=== PATIENT | male | born 1975 | race Two or more races ===

== ENCOUNTER 2018-11-19 10:03 | Emergency (ER) | payer OTHER ==
[~2018-11-19] VITALS: Ht 190.5 cm; Wt 130.3 kg
[2018-11-19] MEDS ORDERED: LISI-167 PO (10:28)
[2018-11-19] MEDS ORDERED: MULT-658 PO (10:28)
--- NOTE | 2018-11-19 10:29 | NUR ---
pt to ed for intermittent left arm pain x1 week, worse last night. pt reports worse when resting and unable to sleep. pt reports fall on ice 1 week ago onto right leg. no left arm pain noted at that time. connected to monitors. vss. pa at bedside for assessment. awaiting orders at this time. no needs currently. call light within reach.
[2018-11-19] MEDS ORDERED: CYCLOBENZAPRINE 10 MG TABLET PO ONE (10:30)
[2018-11-19] MEDS ORDERED: CYCLOBENZAPRINE 10 MG TABLET ONE (10:33)
--- NOTE | 2018-11-19 10:45 | NUR ---
lab at bedside.
[2018-11-19 10:59] LABS: BASOPHILS # (AUTO) 0.02 x10^3/uL (0-0.1); BASOPHILS % (AUTO) 0 % (0-1); EOSINOPHILS # (AUTO) 0.05 x10^3/uL (0-0.4); EOSINOPHILS % (AUTO) 1 % (1-7); LYMPHOCYTES # (AUTO) 1.62 x10^3/uL (1-3.4); LYMPHOCYTES % (AUTO) 33 % (22-44); MD NO; MEAN CORPUSCULAR HEMOGLOBIN 29.7 pg (27.5-34.5); MEAN CORPUSCULAR HGB CONC 33.5 g/dL (33.2-36.2); MEAN CORPUSCULAR VOLUME 88.7 fL (81-97); MEAN PLATELET VOLUME 9.2 fL (7.4-10.4); MONOCYTES # (AUTO) 0.35 x10^3/uL (0.2-0.8); MONOCYTES % (AUTO) 7 % (2-9); NEUTROPHILS # (AUTO) 2.89 x10^3/uL (1.8-6.8); NEUTROPHILS % (AUTO) 59 % (42-75); PLATELET COUNT 146 x10^3/uL (130-400)
--- NOTE | 2018-11-19 11:06 | NUR ---
pt resting in room. no needs at this time. vss. awaiting lab results.
[2018-11-19 11:08] LABS: ALBUMIN 3.6 g/dL (3.4-5.0); ANION GAP 4 mmol/L (5-15); CALCIUM 8.3 mg/dL (8.5-10.1); CHLORIDE 110 mmol/L (98-107); CREATININE 0.98 mg/dL (0.7-1.3)
[2018-11-19 11:12] LABS: TROPONIN I < 0.015 ng/mL (0.000-0.045)
--- NOTE | 2018-11-19 11:23 | NUR ---
all results back at this time. chart up for recheck.
[2018-11-19 11:56] VITALS: BP 123/75
--- NOTE | 2018-11-19 11:57 | NUR ---
pt resting in room with lights dimmed. no needs at this time. vss. call light within reach. chart up for recheck.
== END 2018-11-19 12:43 | disposition home or self-care (01) ==
LOC: ED 11:51
DX: R07.89 Other chest pain (principal); I10 Essential (primary) hypertension; E66.9 Obesity, unspecified
CPT/HCPCS: 36415; 71046; 80048; 82040; 84484; 85025; 93005; 99284

== ENCOUNTER 2018-12-26 02:35 | Emergency (ER) | payer OTHER ==
[~2018-12-26] VITALS: Ht 190.5 cm; Wt 127.0 kg
[~2018-12-26 02:35] MED LIST: LISI-167 PO; MULT-658 PO
[2018-12-26] MEDS ORDERED: MORPHINE SULFATE 4 MG/ML, 1ML ONE ×2 (02:54→04:04)
[2018-12-26] MEDS ORDERED: ONDANSETRON 2MG/ML, 2ML ONE (02:54)
[2018-12-26] MEDS ORDERED: MORPHINE SULFATE 4 MG/ML, 1ML IVPush PRN (03:00)
[2018-12-26] MEDS ORDERED: ONDANSETRON 2MG/ML, 2ML IVPush ONE (03:00)
[2018-12-26 03:07] LABS: BASOPHILS # (AUTO) 0.03 x10^3/uL (0-0.1); BASOPHILS % (AUTO) 1 % (0-1); EOSINOPHILS # (AUTO) 0.09 x10^3/uL (0-0.4); EOSINOPHILS % (AUTO) 2 % (1-7); LYMPHOCYTES # (AUTO) 2.92 x10^3/uL (1-3.4); LYMPHOCYTES % (AUTO) 46 % (22-44); MD NO; MEAN CORPUSCULAR HEMOGLOBIN 29.4 pg (27.5-34.5); MEAN CORPUSCULAR HGB CONC 33.4 g/dL (33.2-36.2); MEAN CORPUSCULAR VOLUME 88.2 fL (81-97); MEAN PLATELET VOLUME 9.4 fL (7.4-10.4); MONOCYTES # (AUTO) 0.62 x10^3/uL (0.2-0.8); MONOCYTES % (AUTO) 10 % (2-9); NEUTROPHILS # (AUTO) 2.67 x10^3/uL (1.8-6.8); NEUTROPHILS % (AUTO) 42 % (42-75); PLATELET COUNT 142 x10^3/uL (130-400); RED CELL DISTRIBUTION WIDTH 13.4 % (9.4-14.8)
--- NOTE | 2018-12-26 03:07 | NUR ---
PT PRESENTS W/ SUDDEN R FLANK AND RUQ ABD [id number] MINUTES AGO. STATES PAIN IS STABBING/SHARP AND WOKE HIM FROM HIS SLEEP. STATES HX OF KIDNEY STONES. DENIES FURTHER GI/ SX. MONITORING APPLIED. CALL LIGHT WITHIN REACH. PT TO CT.
[2018-12-26 03:16] LABS: ALANINE AMINOTRANSFERASE 57 U/L (12-78); ALBUMIN 4.1 g/dL (3.4-5.0); ANION GAP 8 mmol/L (5-15); CALCIUM 8.8 mg/dL (8.5-10.1); CHLORIDE 107 mmol/L (98-107); CREATININE 1.13 mg/dL (0.7-1.3)
[2018-12-26 03:18] LABS: ALKALINE PHOSPHATASE 70 U/L (45-117); BILIRUBIN,TOTAL 0.5 mg/dL (0.2-1.0); TOTAL PROTEIN 7.1 g/dL (6.4-8.2)
--- NOTE | 2018-12-26 03:56 | NUR ---
PT PROMPTED FOR UA AGAIN, AT THIS TIME. ATTEMPTING UA.
[2018-12-26 04:29] LABS: MICROSCOPIC NOT IND
[2018-12-26 04:36] LABS: CULTURE INDICATED? NO
--- NOTE | 2018-12-26 04:51 | NUR ---
ALL RESULTS BACK. PT UP FOR RECHECK.
--- NOTE | 2018-12-26 05:01 | NUR ---
AT BEDSIDE FOR REASSESSMENT.
[2018-12-26 05:47] VITALS: BP 109/75
--- NOTE | 2018-12-26 05:48 | NUR ---
PT STATES PAIN IS BACK, BUT NOT BAD BEFORE. THIS RN TO CONTINUE TO MONITOR FOR PAIN PER MD ORDER.
--- NOTE | 2018-12-26 05:56 | NUR ---
AT BEDSIDE FOR RECHECK.
== END 2018-12-26 06:19 | disposition home or self-care (01) ==
LOC: ED 05:22
DX: K80.20 Calculus of gallbladder without cholecystitis without obstruction (principal); I10 Essential (primary) hypertension
CPT/HCPCS: 36415; 74176; 80053; 81003; 83690; 85025; 96374; 96375; 99284; J2405

== ENCOUNTER 2019-04-04 10:11 | Observation (INO) | payer BC, OTHER ==
[~2019-04-04] VITALS: Ht 190.5 cm; Wt 130.1 kg
--- NOTE | 2019-04-04 10:32 | NUR ---
ESCORETED PATIENT TO ROOM 26 VIA WHEELCHAIR. PT CHANGED INTO GOWN. WARM BLANKET PROVIDED. CONINUOUS SPO2 AND CARDIAC MONITORS APPLIED. BP CUFF ON AND SET TO Q1HR. CHRISTINA FUENTES AT BEDSIDE. S/O AT BEDSIDE. PT C/O CHEST PAIN AND PRESSURE BEGINNING LAST TUESDAY THAT GETS WORSE WITH LAYING DOWN. PT IN NO ACUTE DISTRESS.
[2019-04-04] MEDS ORDERED: ASPIRIN 81 MG TABLET CHEW ONE (10:57)
[2019-04-04] MEDS ORDERED: ASPIRIN 81 MG TABLET CHEW PO ONE (11:00)
[2019-04-04] MEDS ORDERED: SODIUM CHLORIDE FLUSH 10ML SYR IVF ONE (11:00)
--- NOTE | 2019-04-04 11:01 | NUR ---
REPORT RECEIVED FROM SIS ZEPEDA. PT MEDICATED WITH 162MG ASA PER MD ORDER. VSS, AAO X 4, NAD, RESTING IN [facility] WITH CALL LIGHT WITHIN REACH AND FALL PRECAUTIONS IN PLACE.
[2019-04-04 11:05] LABS: BASOPHILS # (AUTO) 0.03 x10^3/uL (0-0.1); BASOPHILS % (AUTO) 1 % (0-1); EOSINOPHILS # (AUTO) 0.06 x10^3/uL (0-0.4); EOSINOPHILS % (AUTO) 1 % (1-7); LYMPHOCYTES # (AUTO) 1.52 x10^3/uL (1-3.4); LYMPHOCYTES % (AUTO) 32 % (22-44); MD NO; MEAN CORPUSCULAR HEMOGLOBIN 29.1 pg (27.5-34.5); MEAN CORPUSCULAR HGB CONC 32.6 g/dL (33.2-36.2); MEAN CORPUSCULAR VOLUME 89.2 fL (81-97); MEAN PLATELET VOLUME 8.9 fL (7.4-10.4); MONOCYTES # (AUTO) 0.45 x10^3/uL (0.2-0.8); MONOCYTES % (AUTO) 9 % (2-9); NEUTROPHILS # (AUTO) 2.74 x10^3/uL (1.8-6.8); NEUTROPHILS % (AUTO) 57 % (42-75); PLATELET COUNT 139 x10^3/uL (130-400); RED BLOOD COUNT 5.31 x10^6/uL (4.38-5.82); RED CELL DISTRIBUTION WIDTH 13.8 % (9.4-14.8)
[2019-04-04 11:15] LABS: ALANINE AMINOTRANSFERASE 39 U/L (12-78); ALBUMIN 3.8 g/dL (3.4-5.0); ANION GAP 7 mmol/L (5-15); CALCIUM 9.1 mg/dL (8.5-10.1); CHLORIDE 109 mmol/L (98-107); CREATININE 1.02 mg/dL (0.7-1.3)
[2019-04-04 11:21] LABS: ALKALINE PHOSPHATASE 55 U/L (45-117); BILIRUBIN,TOTAL 0.5 mg/dL (0.2-1.0); TOTAL PROTEIN 6.9 g/dL (6.4-8.2); TROPONIN I < 0.015 ng/mL (0.000-0.045)
[2019-04-04] MEDS ORDERED: WELLBUTRIN (11:23)
[2019-04-04] MEDS ORDERED: AMLO-150 PO (11:23)
--- NOTE | 2019-04-04 11:32 | NUR ---
ALL RESULTS BACK AT THIS TIME, CHART UP FOR RECHECK.
--- NOTE | 2019-04-04 12:16 | NUR ---
PT AMBULATED TO RESTROOM WITH STEADY GAIT, BACK TO ROOM AND ATTACHED TO MONITORS.
--- NOTE | 2019-04-04 12:24 | NUR ---
PLAN OF CARE DISCUSSED WITH MD, POSSIBLE FOR A REPEAT TROP, ADMISSION, OR DISCHARGE HOME PENDING ON WHAT PT WANTS TO DO.
--- NOTE | 2019-04-04 12:35 | NUR ---
DR. MENDOZA AT BEDSIDE FOR PLAN OF CARE DISCUSSION.
--- NOTE | 2019-04-04 12:43 | NUR ---
PER MD, REPEAT TROP AT 1400. FAMILY AWARE.
--- NOTE | 2019-04-04 13:25 | NUR ---
PT REQUESTING TO STAY THE NIGHT AND HAVE STRESS TEST COMPLETED AN INPATIENT. AMBULATED TO RESTROOM WITH STEADY GAIT.
--- NOTE | 2019-04-04 13:49 | NUR ---
pt assisted to restroom, steady gait, vss, aao x4, nad.
--- NOTE | 2019-04-04 14:16 | NUR ---
REPORT GIVEN TO FIRST OFFICER AND FLIGHT INSTRUCTOR, PT TO TRANSFER TO [facility] WITH ALL BELONGINGS.
--- NOTE | 2019-04-04 14:24 | NUR ---
HOSPITALIST AT BEDSIDE FOR EVALUATION.
--- NOTE | 2019-04-04 14:44 | NUR ---
PT LEFT ER WITH TECH, ON EMBRYOLOGY TEACHER.
[2019-04-04 14:57] VITALS: BP 116/76
[2019-04-04] MEDS ORDERED: TEMAZEPAM 15 MG CAPSULE PO PRN (15:00)
[2019-04-04] MEDS ORDERED: ENOXAPARIN 40 MG/0.4 ML SQ SCH (15:00)
[2019-04-04] MEDS ORDERED: hydrALAzine 20 MG/ML, 1ML IVPush PRN (15:00)
[2019-04-04] MEDS ORDERED: ONDANSETRON 2MG/ML, 2ML IVPush PRN (15:00)
[2019-04-04] MEDS ORDERED: morphine SULFATE 10 MG/ML, 1ML IVPush PRN (15:00)
[2019-04-04] MEDS ORDERED: NITROGLYCERIN 0.4 MG BOTTLE (25 TABS) SL PRN (15:00)
[2019-04-04] MEDS ORDERED: ACETAMINOPHEN 325 MG TABLET PO PRN (15:00)
[2019-04-04] MEDS ORDERED: METOPROLOL TARTRATE 25 MG TABLET PO SCH (18:00)
[2019-04-04] MEDS: METOPROLOL TARTRATE 25 MG TABLET PO SCH (18:06)
[2019-04-04] MEDS ORDERED: BUPR75TA6 PO (18:10)
[2019-04-04 19:34] VITALS: BP 97/60
[2019-04-04 19:54] LABS: TROPONIN I < 0.015 ng/mL (0.000-0.045)
[2019-04-04] MEDS ORDERED: FAMOTIDINE 20 MG/2 ML IVPush SCH (21:00)
[2019-04-04] MEDS: BUPROPION 75 MG TABLET PO SCH (22:57)
[2019-04-05 01:09] VITALS: BP 98/65
[2019-04-05 05:25] LABS: CHOL/HDL RATIO 2.9; LDL/HDL RATIO 1.6 (0.5-3.0)
[2019-04-05 07:33] VITALS: BP 112/74
[2019-04-05] MEDS ORDERED: FAMOTIDINE 20 MG TABLET PO SCH (09:00)
[2019-04-05 13:22] VITALS: BP 112/73
[2019-04-05] MEDS: BUPROPION 75 MG TABLET PO SCH (13:25)
[2019-04-05] MEDS ORDERED: MAALOX/HYOSCYAMINE/LIDOCAINE 45 ML BTL PO ONE (14:00)
[2019-04-05] MEDS ORDERED: SIMV40TA PO (16:16)
== END 2019-04-05 16:55 | disposition home or self-care (01) ==
LOC: ED 12:29 → UNDOADMOB 14:03 → EDIP 14:03 → INTOOBSV 14:03 → EDIP 14:45 → 5SO 14:49 → DCLOUNGE 04-05 16:38 → UNDODISOB 04-05 16:55
PROVIDERS: ADMIT Internal Medicine; ATTEND Internal Medicine
DX: R07.89 Other chest pain (principal); I10 Essential (primary) hypertension; F41.9 Anxiety disorder, unspecified; I25.10 Atherosclerotic heart disease of native coronary artery without angina pectoris; G89.4 Chronic pain syndrome; Z98.84 Bariatric surgery status; Z80.51 Family history of malignant neoplasm of kidney; Z79.899 Other long term (current) drug therapy
CPT/HCPCS: 36415; 71045; 80053; 80061; 83690; 84443; 84484; 85025; 85379; 93005; 93017; 93306; 96372; 96374; 99284; G0378; J1650; J3490

== ENCOUNTER 2019-07-29 21:10 | Emergency (ER) | payer BC ==
[~2019-07-29] VITALS: Ht 190.5 cm; Wt 129.3 kg
[~2019-07-29 21:10] MED LIST changes: +AMLO-150 PO; +BUPR75TA6 PO; +SIMV40TA PO; +WELLBUTRIN
[2019-07-29 22:55] LABS: BASOPHILS # (AUTO) 0.02 x10^3/uL (0-0.1); BASOPHILS % (AUTO) 0 % (0-1); EOSINOPHILS # (AUTO) 0.08 x10^3/uL (0-0.4); EOSINOPHILS % (AUTO) 1 % (1-7); LYMPHOCYTES # (AUTO) 1.81 x10^3/uL (1-3.4); LYMPHOCYTES % (AUTO) 26 % (22-44); MD NO; MEAN CORPUSCULAR HEMOGLOBIN 30.3 pg (27.5-34.5); MEAN CORPUSCULAR HGB CONC 32.7 g/dL (33.2-36.2); MEAN CORPUSCULAR VOLUME 92.8 fL (81-97); MEAN PLATELET VOLUME 8.9 fL (7.4-10.4); MONOCYTES # (AUTO) 0.69 x10^3/uL (0.2-0.8); MONOCYTES % (AUTO) 10 % (2-9); NEUTROPHILS # (AUTO) 4.36 x10^3/uL (1.8-6.8); NEUTROPHILS % (AUTO) 63 % (42-75); PLATELET COUNT 148 x10^3/uL (130-400); RED BLOOD COUNT 5.04 x10^6/uL (4.38-5.82); RED CELL DISTRIBUTION WIDTH 14.6 % (9.4-14.8)
[2019-07-29 23:01] LABS: ALBUMIN 3.9 g/dL (3.4-5.0); ANION GAP 4 mmol/L (5-15); CHLORIDE 108 mmol/L (98-107); CREATININE 1.15 mg/dL (0.7-1.3)
[2019-07-29 23:21] LABS: ALANINE AMINOTRANSFERASE 30 U/L (12-78); ALKALINE PHOSPHATASE 65 U/L (45-117); CALCIUM 8.6 mg/dL (8.5-10.1); TOTAL PROTEIN 6.8 g/dL (6.4-8.2)
[2019-07-29 23:26] LABS: BILIRUBIN,TOTAL 0.4 mg/dL (0.2-1.0); TROPONIN I < 0.015 ng/mL (0.000-0.045)
[2019-07-30 00:26] VITALS: BP 138/84
== END 2019-07-30 00:28 | disposition home or self-care (01) ==
LOC: ED 07-30 00:16
DX: R07.89 Other chest pain (principal)
CPT/HCPCS: 36415; 71046; 76700; 80053; 83690; 84484; 85025; 93005; 99284

== ENCOUNTER 2019-08-03 09:13 | Emergency (ER) | payer BC ==
[~2019-08-03] VITALS: Ht 190.5 cm; Wt 125.4 kg
--- NOTE | 2019-08-03 09:55 | NUR ---
ASSET ANALYST: Patient to room from lobby at this time.
--- NOTE | 2019-08-03 10:06 | NUR ---
ASSUMED CARE OF PT AT THIS TIME. THIS IS A 44 YO MALE WHO PRESENTS TO THE ER C/O INTERMITTENT CP SINCE NOVEMBER. WORSE TODAY STARTING LAST NIGHT. PT STATES PAIN IS "TWITCHY" AND THERE ARE NO EXACERBATING OR RELIEVING FACTORS. PT DENIES SOB, N/V OR DIZZINESS. PT NONTENDER TO PALPATION. 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 PT AO X 4. SKIN PWD. RESP EVEN AND UNLABORED. CALL LIGHT WITHIN REACH. WILL CONT TO MONITOR PT.
--- NOTE | 2019-08-03 11:12 | NUR ---
PT CURRENTLY RESTING ON [employer] NAD NOTED. SKIN PWD. RESP EVEN AND UNLABORED. PT AO X 4. SKIN PWD. RESP EVEN AND UNLABORED. PT AWARE WE ARE WAITING FOR LAB/IMAGING RESULTS. PT DENIES NEEDS AT THIS TIME. CALL LIGHT WITHIN REACH.
[2019-08-03 11:22] LABS: BASOPHILS # (AUTO) 0.02 x10^3/uL (0-0.1); BASOPHILS % (AUTO) 0 % (0-1); EOSINOPHILS # (AUTO) 0.07 x10^3/uL (0-0.4); EOSINOPHILS % (AUTO) 1 % (1-7); LYMPHOCYTES # (AUTO) 1.33 x10^3/uL (1-3.4); LYMPHOCYTES % (AUTO) 23 % (22-44); MD NO; MEAN CORPUSCULAR HEMOGLOBIN 30.2 pg (27.5-34.5); MEAN CORPUSCULAR HGB CONC 32.8 g/dL (33.2-36.2); MEAN CORPUSCULAR VOLUME 92.1 fL (81-97); MEAN PLATELET VOLUME 8.8 fL (7.4-10.4); MONOCYTES # (AUTO) 0.45 x10^3/uL (0.2-0.8); MONOCYTES % (AUTO) 8 % (2-9); NEUTROPHILS # (AUTO) 3.85 x10^3/uL (1.8-6.8); NEUTROPHILS % (AUTO) 67 % (42-75); PLATELET COUNT 155 x10^3/uL (130-400); RED BLOOD COUNT 5.35 x10^6/uL (4.38-5.82); RED CELL DISTRIBUTION WIDTH 13.5 % (9.4-14.8)
[2019-08-03 11:28] LABS: ALANINE AMINOTRANSFERASE 36 U/L (12-78); ANION GAP 3 mmol/L (5-15); CALCIUM 8.8 mg/dL (8.5-10.1); CHLORIDE 107 mmol/L (98-107); CREATININE 1.07 mg/dL (0.7-1.3)
[2019-08-03 11:33] LABS: ALKALINE PHOSPHATASE 59 U/L (45-117); BILIRUBIN,TOTAL 0.7 mg/dL (0.2-1.0); TOTAL PROTEIN 7.1 g/dL (6.4-8.2); TROPONIN I < 0.015 ng/mL (0.000-0.045)
--- NOTE | 2019-08-03 12:01 | NUR ---
PATIENT RESTING ON GURNEY. DENIES FURTHER NEEDS AT THIS TIME. AWAITING RESULTS.
--- NOTE | 2019-08-03 12:19 | NUR ---
SAL STOCK AT BEDSIDE FOR RECHECK/EXPLANATION OF RESULTS.
[2019-08-03 12:51] VITALS: BP 113/74
== END 2019-08-03 12:53 | disposition home or self-care (01) ==
LOC: ED 11:47
DX: M94.0 Chondrocostal junction syndrome [Tietze] (principal); R07.89 Other chest pain; I10 Essential (primary) hypertension
CPT/HCPCS: 36415; 71045; 80053; 83690; 84484; 85025; 93005; 99284

== ENCOUNTER 2019-08-09 15:20 | Observation (INO) | payer BC ==
[~2019-08-09] VITALS: Ht 190.5 cm; Wt 124.2 kg
[2019-08-09] MEDS ORDERED: SODIUM CHLORIDE FLUSH 10ML SYR IVF ONE (17:00)
[2019-08-09 17:09] LABS: ALANINE AMINOTRANSFERASE 28 U/L (12-78); ALBUMIN 4.2 g/dL (3.4-5.0); ANION GAP 4 mmol/L (5-15); CALCIUM 9.2 mg/dL (8.5-10.1); CHLORIDE 108 mmol/L (98-107); CREATININE 0.99 mg/dL (0.7-1.3)
[2019-08-09 17:12] LABS: ALKALINE PHOSPHATASE 71 U/L (45-117); BILIRUBIN,TOTAL 0.7 mg/dL (0.2-1.0); TOTAL PROTEIN 7.5 g/dL (6.4-8.2)
[2019-08-09 17:14] LABS: BASOPHILS # (AUTO) 0.04 x10^3/uL (0-0.1); BASOPHILS % (AUTO) 0 % (0-1); EOSINOPHILS % (AUTO) 1 % (1-7); LYMPHOCYTES # (AUTO) 2.06 x10^3/uL (1-3.4); LYMPHOCYTES % (AUTO) 19 % (22-44); MD NO; MEAN CORPUSCULAR HGB CONC 32.6 g/dL (33.2-36.2); MEAN CORPUSCULAR VOLUME 92.2 fL (81-97); MEAN PLATELET VOLUME 8.6 fL (7.4-10.4); MONOCYTES # (AUTO) 0.78 x10^3/uL (0.2-0.8); MONOCYTES % (AUTO) 7 % (2-9); NEUTROPHILS # (AUTO) 8.14 x10^3/uL (1.8-6.8); NEUTROPHILS % (AUTO) 73 % (42-75); PLATELET COUNT 184 x10^3/uL (130-400); RED BLOOD COUNT 5.43 x10^6/uL (4.38-5.82); RED CELL DISTRIBUTION WIDTH 13.7 % (9.4-14.8)
--- NOTE | 2019-08-09 17:52 | NUR ---
PATIENT BROUGHT BACK FROM TRIAGE WITH CHIEF COMPLAINT OF CENTRAL ABDOMINAL PAIN. THE PATIENT WAS SEEN HERE ONE WEEK AGO WITH CHEST PAIN. NOW PAIN IS IN LOWER MIDDLE PAIN. DENIES CP, N/V, SOB. "IT FEELS LIKE I WAS PUNCH IN THE STOMACH". THE PATIENT IS ALERT, ORIENTED, WARM AN DRY. AT BEDSIDE.
--- NOTE | 2019-08-09 18:05 | NUR ---
PATIENT REPORTS THAT CENTRAL ABD PAIN RADIATES TO BACH WHEN LAYING BACK
--- NOTE | 2019-08-09 18:19 | NUR ---
PT TO IMAGING
[2019-08-09 18:30] LABS: MICROSCOPIC NOT IND
[2019-08-09] MEDS ORDERED: OMNIPAQUE 350 MG/ML, 100ML BOTTLE ONE (18:30)
[2019-08-09 18:33] LABS: CULTURE INDICATED? NO
--- NOTE | 2019-08-09 18:49 | NUR ---
REPORT TO SUN ZEPEDA
[2019-08-09] MEDS ORDERED: MORPHINE SULFATE 4 MG/ML, 1ML ONE (18:50)
--- NOTE | 2019-08-09 18:54 | NUR ---
PAIN 6/10 MIDDLE LOWER ABD. MEDICATED FOR PAIN PER EMAR. WILL REASSESS PAIN
[2019-08-09 18:55] VITALS: BP 118/82
[2019-08-09] MEDS ORDERED: MORPHINE SULFATE 4 MG/ML, 1ML IVPush PRN ×3 (19:00→20:30)
[2019-08-09] MEDS ORDERED: SODIUM CHLORIDE 0.9% 1,000ML IVBOLUS ONE (19:00)
[2019-08-09] MEDS ORDERED: CEFOTETAN PMX 2GM/50ML 50 ML IV ONE (19:30)
[2019-08-09] MEDS ORDERED: CEFOTETAN PMX 1GM/50ML 0 ML ONE (19:41)
[2019-08-09] MEDS ORDERED: BUPIVACAINE/PF 0.5% ONE (19:44)
[2019-08-09] MEDS ORDERED: EPINEPHRINE 1 MG/ML, 1ML ONE (19:44)
--- NOTE | 2019-08-09 19:46 | NUR ---
ER LAW NO BLOOD CULTURES BEFORE ABX
--- NOTE | 2019-08-09 19:47 | NUR ---
report to OR nurse. pt directly to OR at this time.
[2019-08-09] MEDS ORDERED: MIDAZOLAM 1 MG/ML, 2ML ONE ×2 (19:52→20:14)
[2019-08-09] MEDS ORDERED: FENTANYL PF 250 MCG/5ML ONE ×2 (19:52→20:14)
[2019-08-09] MEDS ORDERED: GLYCOPYRROLATE 0.2MG/1ML, 5ML ONE (20:14)
[2019-08-09] MEDS ORDERED: PROPOFOL 10 MG/ML, 20ML ONE (20:14)
[2019-08-09] MEDS ORDERED: ROCURONIUM 10 MG/ML,10ML ONE (20:14)
[2019-08-09] MEDS ORDERED: SUCCINYLCHOLINE 20 MG/ML, 10ML ONE (20:14)
[2019-08-09] MEDS ORDERED: NEOSTIGMINE 1 MG/ML, 10ML ONE (20:14)
[2019-08-09] MEDS ORDERED: hydrALAzine 20 MG/ML, 1ML IV PRN (20:30)
[2019-08-09] MEDS ORDERED: ONDANSETRON 2MG/ML, 2ML IV PRN (20:30)
[2019-08-09] MEDS ORDERED: OXYcodone 5 MG/5 ML ORAL.SOL UDC PO PRN ×2 (20:30→23:30)
[2019-08-09] MEDS ORDERED: MEPERIDINE/PF 25MG/ML,1ML IVPush PRN (20:30)
[2019-08-09] MEDS ORDERED: LABETALOL 5MG/ML, 20ML IV PRN (20:30)
[2019-08-09] MEDS ORDERED: HYDROmorphone 2 MG/ML, 1ML IVPush PRN (20:30)
[2019-08-09] MEDS ORDERED: FENTANYL PF 100 MCG/2ML ONE ×2 (20:35→21:26)
[2019-08-09] MEDS ORDERED: METHOCARBAMOL 1000MG/10 ML IV STA (20:58)
[2019-08-09] MEDS ORDERED: OXYcodone 5 MG/5 ML ORAL.SOL UDC ONE ×2 (21:26→22:54)
[2019-08-09] MEDS: FENTANYL PF 100 MCG/2ML IV PRN ×4 (21:27→21:52)
[2019-08-09] MEDS ORDERED: METHOCARBAMOL 1,000 MG in DEXTROSE 5% 100 ML IV ONE (21:30)
[2019-08-09] MEDS ORDERED: ONDANSETRON 2MG/ML, 2ML IVPush PRN (23:30)
[2019-08-09] MEDS ORDERED: ACETAMINOPHEN 500 MG TABLET PO SCH (23:30)
== END 2019-08-10 00:15 | disposition home or self-care (01) ==
LOC: ED 19:40 → EDIP 20:27 → 4NE 22:50
PROVIDERS: ADMIT Surgery; ATTEND Surgery
DX: K35.30 Acute appendicitis with localized peritonitis, without perforation or gangrene (principal); I10 Essential (primary) hypertension; E66.01 Morbid (severe) obesity due to excess calories; F10.10 Alcohol abuse, uncomplicated; Z98.84 Bariatric surgery status
CPT/HCPCS: 36415; 44970; 74177; 80053; 81003; 85025; 88304; 96365; 96375; 99284; C1729; G0378; J0171; J0330; J2250; J2270; J2704; J2710; J2800; J3010; J3490; J7030; Q9967; S0020

== ENCOUNTER 2019-08-15 15:49 | Emergency (ER) | payer BC ==
[~2019-08-15] VITALS: Ht 190.5 cm; Wt 126.7 kg
[2019-08-15] MEDS ORDERED: MAALOX/HYOSCYAMINE/LIDOCAINE 45 ML BTL ONE (16:24)
[2019-08-15] MEDS ORDERED: MAALOX/HYOSCYAMINE/LIDOCAINE 45 ML BTL PO ONE (16:30)
--- NOTE | 2019-08-15 16:30 | NUR ---
PT STATES HAVING CHEST DISCOMFORT THAT GOES STRAIGHT TO HIS BACK. PT WITH RECENT CARDIAC WORKUP THAT WAS NEGATIVE. PT DENIES SOB, TRAUMA. PT TO BP, CARD MONITOR, CONT PULSE OX
[2019-08-15 17:00] LABS: ALANINE AMINOTRANSFERASE 30 U/L (12-78); ALBUMIN 3.9 g/dL (3.4-5.0); ANION GAP 4 mmol/L (5-15); CHLORIDE 107 mmol/L (98-107); CREATININE 0.96 mg/dL (0.7-1.3)
[2019-08-15 17:02] LABS: ALKALINE PHOSPHATASE 57 U/L (45-117); BILIRUBIN,TOTAL 0.4 mg/dL (0.2-1.0)
--- NOTE | 2019-08-15 17:08 | NUR ---
PT STATES RELEIF FROM GI COCKTAIL. UPDATED. PT AMBULATED TO BR WITH STEADY GAIT. PT PLACED FOR RECHECK
[2019-08-15 17:19] VITALS: BP 123/83
[2019-08-15 17:43] LABS: BASOPHILS # (AUTO) 0.02 x10^3/uL (0-0.1); BASOPHILS % (AUTO) 0 % (0-1); EOSINOPHILS # (AUTO) 0.06 x10^3/uL (0-0.4); EOSINOPHILS % (AUTO) 1 % (1-7); HEMOGRAM NOTE RECHECKED; LYMPHOCYTES # (AUTO) 1.76 x10^3/uL (1-3.4); LYMPHOCYTES % (AUTO) 26 % (22-44); MD NO; MEAN CORPUSCULAR HEMOGLOBIN 29.9 pg (27.5-34.5); MEAN CORPUSCULAR HGB CONC 32.8 g/dL (33.2-36.2); MEAN CORPUSCULAR VOLUME 91.2 fL (81-97); MEAN PLATELET VOLUME 8.9 fL (7.4-10.4); MONOCYTES # (AUTO) 0.44 x10^3/uL (0.2-0.8); MONOCYTES % (AUTO) 7 % (2-9); NEUTROPHILS % (AUTO) 66 % (42-75); PLATELET COUNT 172 x10^3/uL (130-400); RED BLOOD COUNT 5.18 x10^6/uL (4.38-5.82); RED CELL DISTRIBUTION WIDTH 13.7 % (9.4-14.8)
--- NOTE | 2019-08-15 18:43 | NUR ---
Patient/Caregiver given discharge instructions and they have confirmed that they understand the instructions. Patient ambulatory with steady gait.
== END 2019-08-15 18:44 | disposition home or self-care (01) ==
LOC: ED 18:23
DX: K29.00 Acute gastritis without bleeding (principal); M94.0 Chondrocostal junction syndrome [Tietze]; I10 Essential (primary) hypertension
CPT/HCPCS: 36415; 80053; 83690; 85025; 93005; 99284